=== PATIENT | female | born 1940 | race Caucasian/White ===

== ENCOUNTER 2019-11-16 08:28 | Outpatient (CLI) | payer MEDICARE, SELFPAY ==
[2019-11-16 08:54] LABS: Basophils % 0.8 %; Eosinophils # 0.2 10^3/uL (0.0-0.8); Eosinophils % 3.3 %; Hematocrit 33.7 % (37.0-47.0); Hemoglobin 10.8 g/dL (11.5-15.3); Lymphocytes # 1.1 10^3/uL (0.8-4.8); Lymphocytes % 21.9 %; Mean Corpuscular Hemoglobin 29.6 pg (28.0-34.0); Mean Corpuscular Volume 92.3 fL (81-99); Mean Platelet Volume 8.7 fL (7.4-10.4); Monocytes # 0.4 10^3/uL (0.2-0.9); Monocytes % 8.4 %; Neutrophils # 3.4 10^3/uL (1.8-7.7); Neutrophils % 65.4 %; Nucleated Red Blood Cells % 0 %; Platelet Count 306 10^3/cmm (130-400); Red Blood Count 3.65 10^6/uL (4.1-5.3); White Blood Count 5.1 10^3/uL (4.0-10.0)
[2019-11-16 09:04] LABS: Alanine Aminotransferase 12 U/L (0-33); Alkaline Phosphatase 131 IU/L (35-105); Anion Gap 16.4 (5-19); Aspartate Amino Transferase 23 U/L (0-32); Blood Urea Nitrogen 23 mg/dL (8-23); Calcium 10.1 mg/dL (8.5-10.5); Carbon Dioxide 26 mmol/L (22-29); Chloride 97 mmol/L (98-107); Globulin 3.6 g/dL (1.3-4.6); Glucose 116 mg/dL (65-115); Potassium 4.4 mmol/L (3.5-5.1); Sodium 135 mmol/L (136-145); Total Bilirubin 0.3 mg/dL (0.15-1.2); Total Protein 7.6 g/dL (6.6-8.7)
--- NOTE | 2019-11-16 15:17 | ONC FU_ITS ---
Dr. Rees follow up note Patient: Joy Patiño Unit #: [id number]: 1940 Dicatated By: Fabiano Rees M.D.Date of Visit:Nov 16, 2019 Onc Med Follow-up/Prog Note History of Present Illness: Mrs. Joy Patiño, is a 79-year-old female, who was diagnosed with left breast cancer in 1998, at that time she underwent left breast lumpectomy and she was given 3 courses of chemotherapy but could not tolerate the treatment and quit but did receive postlumpectomy radiation therapy. Did not take any other treatment until in 2005 when she developed local recurrence and underwent left mastectomy. As per record, she developed back pain and hip pain for which in October 2016 she was evaluated by orthopedics and MRI scan of lumbar spine was done on 2016 which shows extensive bone metastases with a large soft tissue mass anterior to L1-L2 measuring 5.3 cm in greatest dimension. And her CEA was 30.1. CT scan of abdomen was done on 12/14/2016 which confirmed presence of multiple bone metastases and a right retrocaval/paravertebral soft tissue mass. And also noted was mild thickening of sigmoid colon at that time patient refused further diagnostic efforts and requested only symptomatic care but agreed for CT-guided biopsy of retrocaval mass, which was done on 02/21/2017, the biopsy showed estrogen receptor positive malignant cells which were positive for LEESA-3, and negative for CK 7, CK 20, CD45, CD38, consistent with metastatic breast cancer. She began palliative hormone therapy with anastrozole on 03/13/2017, but she discontinued it because of related to anxiety/panic attacks. At that time she was referred to radiation oncology in [facility] and on 05/15/2017 she was evaluated by Dr. Reyes, and was given course of palliative radiation therapy to sites of painful bone metastases. Subsequently patient accepted treatment with Faslodex from May 2017 to March 2018 and had a good partial response to the treatment but then she discontinued treatment because of discomfort at the injection sites.And opted for observation alone without any treatment. She underwent follow-up CT PET scan on 11/05/2018 which reveals, as per record, no areas of malignant range uptake. HER-2/ale testing was not performed because of inadequate tissue obtained from retrocaval mass biopsy and her medical oncologist Dr. Nunez did not recommend rebiopsy for HER-2/ale status as patient prefer less aggressive therapy. 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 Complex bilateral renal lesions, indeterminate on noncontrast exam. Colonic diverticulosis without pericolonic inflammation. Patient denies any trauma to her lower back except as per patient she was working in the yard, that made her pain worse other than that she occasionally take narcotics, with good pain control but also with sedation, denies any lower extremity weakness or pain radiation to lower extremity, denies any urine or stool incontinence, denies any numbness in lower extremities. As per patient her pain is around 5-6 on a scale of 1-10,. CT PET scan done on 03/27/[address] PET scan from 11/05/2018 and 05/09/2018showed no change in the small retroperitoneal mass posterior to the inferior vena cava with borderline activity with maximum SUV of 2.5 status post mastectomy on the left No change in sclerotic densities in the bone suspicious for metastatic disease which did not show increase activity. Came for follow-up, denies any specific complaint except chronic lower back pain for which she take hydrocodone on as-needed basis. Other than that no other complaints except generalized weakness and fatigue and she is requesting a handicap sticker for parking. Denies any fever chills denies any nausea vomiting denies any headaches or blurred vision or double vision denies any new bony pains denies any jaundice. Follow-up CT PET scan done on 11/03/2019 showed, interval development of 2.9 cm, left supraclavicular lymph node with abnormal metabolic activity, SUV 8.9. There are numerous sclerotic foci within the bones with abnormal metabolic activity including left iliac bone sclerotic lesion with a maximal SUV 4.9. There or metabolically active lesions within the axilla and proximal appendicular skeleton which have worsened in the interval. Small retrocaval lymph node has SUV of 2.8 As a new left internal mammary lymph node with increase in metabolic activity. Came for follow-up, denies any specific complaints except chronic muscular skeleton discomfort/pain but no fever or chills no nausea or vomiting no diarrhea constipation no headaches or blurred vision double vision. Wants to discuss her CT PET scan findings. Medications: AmLODIPine Besylate 1 Tablet (of 5 mg) Oral daily, Aricept 1 Tablet (of 5 mg) Oral daily, Aspirin Low Dose 1 Tablet (of 81 mg) Oral daily, Coumadin 1 Tablet (of 1 mg) Oral daily, Docusate Calcium 1 Capsule (of 240 mg) Oral daily, Lexapro 1 Tablet (of 20 mg) Oral daily, Lisinopril-Hydrochlorothiazide 1 Tablet (of 20-12.5 mg) Oral daily, LORazepam 1 Tablet (of 0.5 mg) Tablet Oral q 4 hours PRN, Mobic 1 Tablet (of 15 mg) Oral daily, Multiple Vitamins-Minerals 1 Tablet Oral daily, PriLOSEC 1 Capsule (of 20 mg) Capsule Delayed Release Oral daily Allergies: No Known Allergies. Review of Systems: Constitutional - Appetite is good and weight is stable. No fever, chills, hot flashes, or night sweats. Energy level is poor, ENMT - Positive for sinus congestion/drainage. No mouth sores. No sore throat or difficulty swallowing, Hematologic/Lymphatic - [employer] bruising and bleeding, Respiratory - Positive for shortness of breath. Positive for cough. No pleuritic pain or hemoptysis, Cardiovascular - No angina pain. No palpitations, Gastrointestinal - No nausea or vomiting. Positive for heartburn, no acid reflux. Occasional diarrhea. Positive for constipation. No blood in the stool or black stools, Genitourinary (F) - Positive for incontinence and urinary frequency, Musculoskeletal - Positive for joint and back pain, Neurologic - No headache, occasional dizziness. Tingling in hands and feet, Psychiatric - Positive for anxiety/depression/insomnia/suicidal thoughts. Pt denies active plan. Vital Signs: Performed on Nov 16, 2019 10:20 Height - 64.00 in Weight - 160.0 lbs (LOW) BSA - 1.78 sq.m BMI - 27.46 Temperature - 98.1 F (LOW) Pulse - 89 /min Respiration - 17 /min BP - 145/66 mm(hg) (HIGH) O2 Sat - 95 % (LOW) Pain - 0 Performance Status: 0 - Fully active, able to carry on all predisease activities without restrictions. (ECOG) Physical Examination: Respiratory - Lungs are clear to auscultation without rhonchi or wheezing, Cardiovascular - Regular rate and rhythm of heart, Chest - Chest is symmetric without chest wall deformities, fullness and left supraclavicular area, Extremities - no edema. Lab/Imaging: Test performed on Jun 25, 2019 12:25 Sodium 135 mmol/L Potassium 4.1 mmol/L Chloride 97 mmol/L CO2 24 mmol/L Anion Gap 18.1 BUN 21 mg/dL Creatinine 1.2 mg/dL Cr Clearance (Est) 44.5500 mL/min Glucose 146 mg/dl Calcium 9.6 mg/dL Protein, Total 7.6 g/dL Albumin 4.2 g/dL Globulin 3.4 gm/dL Bilirubin, Total 0.3 mg/dL ALT (SGPT) 25 U/L AST (SGOT) 26 U/L Alkaline Phosphatase 86 U/L WBC 4.6 /cmm RBC 3.98 10 6/cmm HGB 12.4 g/dl HCT 35.8 % MCV 89.9 /cmm MCH 31.2 pg MCHC 34.6 g/dl RDW 13.8 % Platelet Count 254 10 3/cmm MPV 7.3 fl Neutrophils 2.6 10 3/cmm Lymphocytes 1.4 10 3/cmm Monocytes 0.4 10 3/cmm Eosinophils 0.2 10 3/cmm Basophils 0.0 10 3/cmm Neutrophil % 56.5 % Lymphocyte % 29.3 % Monocyte % 9.7 % Eosinophil % 4.0 % Basophils % 0.5 % Impression: Progressive metastatic breast cancer while being observed at patient request confirmed with CT PET scan done on 11/03/2019, started on Arimidex 1 mg by mouth daily along with vitamin D and calcium supplement and monthly Xgeva on 11/16/2019 History of left breast cancer status post lumpectomy in 1998 followed by adjuvant chemotherapy patient took 3/4 recommended courses and quit AGAINST MEDICAL ADVICE because of intolerance. Followed by postlumpectomy radiation therapy and no further treatment Local recurrence in left breast for which she underwent left mastectomy in 2005 Did well until October 2016, when she developed back pain/hip pain at that time she underwent MRI scan of lumbar spine on 11/16/2016 which showed extensive bone metastases with a large soft tissue mass anterior to L1-L2 measuring 5.[address] scan of abdomen pelvis on 12/14/2016 which confirmed presence of multiple bone metastases and a right retrocaval/paravertebral soft tissue mass and also with the mild thickening of sigmoid colon. Patient refused further workup but finally agreed for CT-guided biopsy of retrocaval mass, which was done on 02/21/2017, which showed estrogen receptor positive malignant cell which were also positive for GATA3 and negative for CK 7, CD20, CD45, CD38. Consistent with metastatic breast cancer. She was started on palliative hormone therapy with anastrozole on 03/13/2017 but she discontinued because of related anxiety and panic attacks. At that time she was referred to radiation oncology in [place], she saw Dr. Reyes on 05/15/2017, at that time she received palliative radiation therapy to site of painful bone metastases with good response and subsequently she was started on Faslodex from May 2017 through March 2018, had a good partial response to the treatment but then she discontinued treatment because of discomfort at the injection sites and opted for observation Underwent follow-up CT PET scan on 11/05/2018 which showed as per record, no areas of malignant range uptake. 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 CT PET scan done on 03/27/2019, when compared with CT PET scan from 11/05/2018 and 05/09/2018 showed no change in small retroperitoneal mass just posterior to the inferior vena cava that measures about 8 x 11 mm and there is a minimum activity in this area with maximum SUV of 2.5 which is not significant change. No other areas of abnormal activity or mass seen. Normal activity is seen in the solid organs. Next Sclerotic densities in the bone suspicion metastatic disease are unchanged. No increased activity is seen in the bones. cyst of posterior right kidney that measured 2.8 cm Status post left mastectomy. Plan: Discussed with patient regarding her labs white blood count 5.1 hemoglobin 10.68 crit 33.7 platelets 306,000 CMP within normal limit except creatinine 1.5 and alkaline phosphatase 131 [place] [address] PET scan findings which shows evidence of disease progression Clinically, patient is doing well with no new signs symptoms but her follow-up CT PET scan shows evidence of disease progression, now with progressive skeleton metastases and new left supraclavicular lymph node and internal mammary lymph node. At this point we will consider starting on Arimidex 1 mg by mouth daily, as per patient in the past, she tolerated Arimidex well until nurse gave her another pill and Arimidex together, which caused symptoms side effects. Now agreed to try, we will monitor her closely for any side effects other than usual e.g. hot flashes, generalized weakness fatigue or muscle skeleton discomfort. Patient return to clinic in one month with CBC CMP and also consider Xgeva on monthly basis to prevent skeletal related complications. Signed By: Fabiano Rees M.D. <<Signature on File>>
== END 2019-11-16 08:29 | disposition home or self-care (01) ==
LOC: ONCMED 08:29
PROVIDERS: Family Provider Nurse Practitioner Family; PCP Family Medicine; Visit Provider Internal Medicine Hematology & Oncology
DX: C79.51 Secondary malignant neoplasm of bone (principal); C78.6 Secondary malignant neoplasm of retroperitoneum and peritoneum; C77.8 Secondary and unspecified malignant neoplasm of lymph nodes of multiple regions; Z85.3 Personal history of malignant neoplasm of breast; G89.29 Other chronic pain; M54.5 Low back pain; Z17.0 Estrogen receptor positive status [ER+]; Z79.891 Long term (current) use of opiate analgesic; Z79.899 Other long term (current) drug therapy; Z79.82 Long term (current) use of aspirin; Z79.811 Long term (current) use of aromatase inhibitors; Z92.21 Personal history of antineoplastic chemotherapy; Z92.3 Personal history of irradiation; Z90.12 Acquired absence of left breast and nipple
CPT/HCPCS: 80053; 85025; 86300; 99214

== ENCOUNTER 2019-11-19 09:19 | Outpatient (CLI) | payer MEDICARE, SELFPAY ==
[2019-11-19] MEDS: denosumab 120 mg SDV SUBCUT (09:45)
== END 2019-11-19 09:20 | disposition home or self-care (01) ==
LOC: ONCMED 09:19
PROVIDERS: Family Provider Nurse Practitioner Family; PCP Family Medicine; Visit Provider Internal Medicine Medical Oncology
DX: C79.51 Secondary malignant neoplasm of bone (principal)
CPT/HCPCS: 96372; J0897

== ENCOUNTER 2019-12-23 14:05 | Outpatient (CLI) | payer MEDICARE, SELFPAY ==
[2019-12-23 16:53] LABS: Basophils % 0.7 %; Eosinophils # 0.2 10^3/uL (0.0-0.8); Eosinophils % 3.5 %; Hematocrit 36.8 % (37.0-47.0); Hemoglobin 11.6 g/dL (11.5-15.3); Lymphocytes # 1.7 10^3/uL (0.8-4.8); Lymphocytes % 31.7 %; Mean Corpuscular HGB Conc 31.5 g/dL (30.0-36.0); Mean Corpuscular Hemoglobin 29.3 pg (28.0-34.0); Mean Corpuscular Volume 92.9 fL (81-99); Mean Platelet Volume 9.2 fL (7.4-10.4); Monocytes # 0.5 10^3/uL (0.2-0.9); Monocytes % 9.2 %; Neutrophils % 54.5 %; Nucleated Red Blood Cells % 0 %; Platelet Count 314 10^3/cmm (130-400); Red Blood Count 3.96 10^6/uL (4.1-5.3); Red Cell Distribution Width 13.7 % (12.1-15.1); White Blood Count 5.5 10^3/uL (4.0-10.0)
[2019-12-23 16:55] LABS: Alanine Aminotransferase 18 U/L (0-33); Albumin Level 4.4 g/dL (3.5-5.2); Alkaline Phosphatase 111 IU/L (35-105); Anion Gap 16.3 (5-19); Aspartate Amino Transferase 26 U/L (0-32); Blood Urea Nitrogen 27 mg/dL (8-23); Calcium 9.4 mg/dL (8.5-10.5); Carbon Dioxide 26 mmol/L (22-29); Chloride 93 mmol/L (98-107); Globulin 2.8 g/dL (1.3-4.6); Glucose 121 mg/dL (65-115); Osmolality Calculated 270 mOsm/kg (285-295); Potassium 4.3 mmol/L (3.5-5.1); Sodium 131 mmol/L (136-145); Total Bilirubin 0.3 mg/dL (0.15-1.2); Total Protein 7.2 g/dL (6.6-8.7)
== END 2019-12-23 14:06 | disposition home or self-care (01) ==
LOC: ONCMED 17:04
PROVIDERS: PCP Family Medicine; Visit Provider Internal Medicine Hematology & Oncology
DX: C50.912 Malignant neoplasm of unspecified site of left female breast (principal); C79.51 Secondary malignant neoplasm of bone; C78.6 Secondary malignant neoplasm of retroperitoneum and peritoneum
CPT/HCPCS: 80053; 85025

== ENCOUNTER 2019-12-24 12:17 | Outpatient (CLI) | payer MEDICARE, SELFPAY ==
[2019-12-24] MEDS: denosumab 120 mg SDV SUBCUT (13:21)
--- NOTE | 2019-12-24 16:21 | ONC FU_ITS ---
Dr. Rees follow up note Patient: Joy Patiño Unit #: [id number]: 1940 Dicatated By: Fabiano Rees M.D.Date of Visit:Dec 24, 2019 Onc Med Follow-up/Prog Note History of Present Illness: Mrs. Joy Patiño, is a 79-year-old female, who was diagnosed with left breast cancer in 1998, at that time she underwent left breast lumpectomy and she was given 3 courses of chemotherapy but could not tolerate the treatment and quit but did receive postlumpectomy radiation therapy. Did not take any other treatment until in 2005 when she developed local recurrence and underwent left mastectomy. As per record, she developed back pain and hip pain for which in October 2016 she was evaluated by orthopedics and MRI scan of lumbar spine was done on 2016 which shows extensive bone metastases with a large soft tissue mass anterior to L1-L2 measuring 5.3 cm in greatest dimension. And her CEA was 30.1. CT scan of abdomen was done on 12/14/2016 which confirmed presence of multiple bone metastases and a right retrocaval/paravertebral soft tissue mass. And also noted was mild thickening of sigmoid colon at that time patient refused further diagnostic efforts and requested only symptomatic care but agreed for CT-guided biopsy of retrocaval mass, which was done on 02/21/2017, the biopsy showed estrogen receptor positive malignant cells which were positive for LEESA-3, and negative for CK 7, CK 20, CD45, CD38, consistent with metastatic breast cancer. She began palliative hormone therapy with anastrozole on 03/13/2017, but she discontinued it because of related to anxiety/panic attacks. At that time she was referred to radiation oncology in [facility] and on 05/15/2017 she was evaluated by Dr. Reyes, and was given course of palliative radiation therapy to sites of painful bone metastases. Subsequently patient accepted treatment with Faslodex from May 2017 to March 2018 and had a good partial response to the treatment but then she discontinued treatment because of discomfort at the injection sites.And opted for observation alone without any treatment. She underwent follow-up CT PET scan on 11/05/2018 which reveals, as per record, no areas of malignant range uptake. HER-2/ale testing was not performed because of inadequate tissue obtained from retrocaval mass biopsy and her medical oncologist Dr. Nunez did not recommend rebiopsy for HER-2/ale status as patient prefer less aggressive therapy. 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 Complex bilateral renal lesions, indeterminate on noncontrast exam. Colonic diverticulosis without pericolonic inflammation. Patient denies any trauma to her lower back except as per patient she was working in the yard, that made her pain worse other than that she occasionally take narcotics, with good pain control but also with sedation, denies any lower extremity weakness or pain radiation to lower extremity, denies any urine or stool incontinence, denies any numbness in lower extremities. As per patient her pain is around 5-6 on a scale of 1-10,. CT PET scan done on 03/27/[address] PET scan from 11/05/2018 and 05/09/2018showed no change in the small retroperitoneal mass posterior to the inferior vena cava with borderline activity with maximum SUV of 2.5 status post mastectomy on the left No change in sclerotic densities in the bone suspicious for metastatic disease which did not show increase activity. , denies any specific complaint except chronic lower back pain for which she take hydrocodone on as-needed basis. Follow-up CT PET scan done on 11/03/2019 showed, interval development of 2.9 cm, left supraclavicular lymph node with abnormal metabolic activity, SUV 8.9. There are numerous sclerotic foci within the bones with abnormal metabolic activity including left iliac bone sclerotic lesion with a maximal SUV 4.9. There or metabolically active lesions within the axilla and proximal appendicular skeleton which have worsened in the interval. Small retrocaval lymph node has SUV of 2.8 As a new left internal mammary lymph node with increase in metabolic activity. Started on Arimidex 1 mg by mouth daily along with vitamin D/calcium on 11/16/2019 along with monthly Xgeva Came for follow-up, denies any specific complaints, no nausea or vomiting, no fever or chills, no skin rash or diarrhea constipation, no night sweats, no hot flashes. Tolerating Arimidex and vitamin D/calcium and monthly Xgeva well Medications: Aspirin Low Dose 1 Tablet (of 81 mg) Oral daily, Calcium Citrate 1 Capsule Oral daily, Coumadin 1 Tablet (of 1 mg) Oral daily, Docusate Calcium 1 Capsule (of 240 mg) Oral daily, Famotidine 1 Tablet (of 40 mg) Oral daily, Fish Oil 1 Capsule Oral daily, Lexapro 1 Tablet (of 20 mg) Oral daily, Lisinopril-Hydrochlorothiazide 1 Tablet (of 20-25 mg) Oral daily, LORazepam 1 Tablet (of 0.5 mg) Tablet Oral q 4 hours PRN, Mobic 1 Tablet (of 15 mg) Oral daily, Multiple Vitamins-Minerals 1 Tablet Oral daily, PriLOSEC 1 Capsule (of 20 mg) Capsule Delayed Release Oral daily Allergies: No Known Allergies. Review of Systems: Constitutional - Appetite is good and weight is stable. No fever, chills, hot flashes, or night sweats. Energy level is fair today, ENMT - Positive for sinus congestion/drainage. No mouth sores. No sore throat or difficulty swallowing, Hematologic/Lymphatic - [employer] bruising and bleeding, Respiratory - Negative for shortness of breath. Positive for cough. No pleuritic pain or hemoptysis, Cardiovascular - No angina pain. No palpitations, Gastrointestinal - No nausea or vomiting. Positive for heartburn, no acid reflux. Occasional diarrhea. Positive for constipation. No blood in the stool or black stools, Genitourinary (F) - Positive for incontinence and urinary frequency, Musculoskeletal - Positive for joint and back pain, Neurologic - No headache, occasional dizziness. Tingling in hands and feet, Psychiatric - Positive for anxiety/depression/insomnia/suicidal thoughts. Pt denies active plan. Vital Signs: Performed on Dec 24, 2019 12:38 Height - 64.00 in Weight - 162.2 lbs (HIGH) BSA - 1.79 sq.m BMI - 27.84 Temperature - 98.1 F (LOW) Pulse - 79 /min Respiration - 18 /min BP - 145/69 mm(hg) (HIGH) O2 Sat - 99 % Pain - 0 Performance Status: 0 - Fully active, able to carry on all predisease activities without restrictions. (ECOG) Physical Examination: Respiratory - Lungs are clear to auscultation without rhonchi or wheezing, Cardiovascular - Regular rate and rhythm of heart without murmurs, gallops or rubs, Extremities - No visible deformities, no cyanosis, clubbing or edema. Pulses 4+ and equal bilaterally. Lab/Imaging: Test performed on Dec 23, 2019 14:05 Sodium 131 mmol/L Potassium 4.3 mmol/L Chloride 93 mmol/L CO2 26 mmol/L Anion Gap 16.3 BUN 27 mg/dL Creatinine 1.8 mg/dL Cr Clearance (Est) 28.47 mL/min Glucose 121 mg/dL Calcium 9.4 mg/dL Protein, Total 7.2 g/dL Albumin 4.4 g/dL Globulin 2.8 g/dL Bilirubin, Total 0.3 mg/dL ALT (SGPT) 18 U/L AST (SGOT) 26 U/L Alkaline Phosphatase 111 IU/L WBC 5.5 10 3/uL RBC 3.96 10 6/uL HGB 11.6 g/dL HCT 36.8 % MCV 92.9 fL MCH 29.3 pg MCHC 31.5 g/dL RDW 13.7 % Platelet Count 314 10 3/cmm MPV 9.2 fL Neutrophils 3.0 10 3/uL Lymphocytes 1.7 10 3/uL Monocytes 0.5 10 3/uL Eosinophils 0.2 10 3/uL Basophils 0.0 10 3/uL Neutrophil % 54.5 % Lymphocyte % 31.7 % Monocyte % 9.2 % Eosinophil % 3.5 % Basophils % 0.7 % Impression: Progressive metastatic breast cancer while being observed at patient request , now confirmed with f/u CT PET scan done on 11/03/2019, started on Arimidex 1 mg by mouth daily along with vitamin D and calcium supplement and monthly Xgeva on 11/16/2019 History of left breast cancer status post lumpectomy in 1998 followed by adjuvant chemotherapy patient took 3/4 recommended courses and quit AGAINST MEDICAL ADVICE because of intolerance. Followed by postlumpectomy radiation therapy and no further treatment Local recurrence in left breast for which she underwent left mastectomy in 2005 Did well until October 2016, when she developed back pain/hip pain at that time she underwent MRI scan of lumbar spine on 11/16/2016 which showed extensive bone metastases with a large soft tissue mass anterior to L1-L2 measuring 5.[address] scan of abdomen pelvis on 12/14/2016 which confirmed presence of multiple bone metastases and a right retrocaval/paravertebral soft tissue mass and also with the mild thickening of sigmoid colon. Patient refused further workup but finally agreed for CT-guided biopsy of retrocaval mass, which was done on 02/21/2017, which showed estrogen receptor positive malignant cell which were also positive for GATA3 and negative for CK 7, CD20, CD45, CD38. Consistent with metastatic breast cancer. She was started on palliative hormone therapy with anastrozole on 03/13/2017 but she discontinued because of related anxiety and panic attacks. At that time she was referred to radiation oncology in [place], she saw Dr. Reyes on 05/15/2017, at that time she received palliative radiation therapy to site of painful bone metastases with good response and subsequently she was started on Faslodex from May 2017 through March 2018, had a good partial response to the treatment but then she discontinued treatment because of discomfort at the injection sites and opted for observation Underwent follow-up CT PET scan on 11/05/2018 which showed as per record, no areas of malignant range uptake. 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 CT PET scan done on 03/27/2019, when compared with CT PET scan from 11/05/2018 and 05/09/2018 showed no change in small retroperitoneal mass just posterior to the inferior vena cava that measures about 8 x 11 mm and there is a minimum activity in this area with maximum SUV of 2.5 which is not significant change. No other areas of abnormal activity or mass seen. Normal activity is seen in the solid organs. Next Sclerotic densities in the bone suspicion metastatic disease are unchanged. No increased activity is seen in the bones. cyst of posterior right kidney that measured 2.8 cm Status post left mastectomy. Plan: Discussed with patient regarding her labs white blood count 5.5 hemoglobin 11.6 crit 36.8 platelets 314,000 CMP within normal limit except sodium 131 and creatinine 1.8 Clinically, patient is doing reasonably well, tolerating Arimidex/vitamin D/calcium and monthly Xgeva well. We'll proceed with next monthly dose of Xgeva today and then she will continue with Arimidex 1 mg by mouth daily. Patient had no issues with Arimidex this time like what happened when she took it first-time in 2017, as per patient that time she took another pill along with this, and was not sure whether it was Arimidex. So this time we will rechallenge, she had no issues and tolerating well. So we'll continue with same and she will return to clinic in 3 months with CBC CMP but continue with monthly Xgeva. Mild anemia, hemoglobin is improving we'll continue to monitor Mild renal insufficiency, we'll suggest PMD consult nephrology. Signed By: Fabiano Rees M.D. <<Signature on File>>
== END 2019-12-24 12:18 | disposition home or self-care (01) ==
LOC: ONCMED 12:19
PROVIDERS: PCP Family Medicine; Visit Provider Internal Medicine Hematology & Oncology
DX: C79.51 Secondary malignant neoplasm of bone (principal); C50.912 Malignant neoplasm of unspecified site of left female breast; C78.6 Secondary malignant neoplasm of retroperitoneum and peritoneum; C77.0 Secondary and unspecified malignant neoplasm of lymph nodes of head, face and neck; Z85.3 Personal history of malignant neoplasm of breast; Z17.0 Estrogen receptor positive status [ER+]; K57.90 Diverticulosis of intestine, part unspecified, without perforation or abscess without bleeding; G89.29 Other chronic pain; M54.5 Low back pain; D64.9 Anemia, unspecified; N18.2 Chronic kidney disease, stage 2 (mild); F41.8 Other specified anxiety disorders; Z79.811 Long term (current) use of aromatase inhibitors; Z79.82 Long term (current) use of aspirin; Z79.01 Long term (current) use of anticoagulants; Z79.899 Other long term (current) drug therapy; Z92.3 Personal history of irradiation; Z90.12 Acquired absence of left breast and nipple; Z92.21 Personal history of antineoplastic chemotherapy
CPT/HCPCS: 96372; 99214; J0897

== ENCOUNTER 2020-01-25 13:19 | Outpatient (CLI) | payer MEDICARE, SELFPAY ==
[2020-01-25] MEDS: denosumab 120 mg SDV SUBCUT (13:30)
== END 2020-01-25 13:20 | disposition home or self-care (01) ==
LOC: ONCMED 13:27
PROVIDERS: PCP Family Medicine; Visit Provider Internal Medicine Hematology & Oncology
DX: Z51.11 Encounter for antineoplastic chemotherapy (principal); C78.6 Secondary malignant neoplasm of retroperitoneum and peritoneum; C79.51 Secondary malignant neoplasm of bone; C50.912 Malignant neoplasm of unspecified site of left female breast
CPT/HCPCS: 96372; J0897

== ENCOUNTER 2020-02-24 12:37 | Outpatient (CLI) | payer MEDICARE, SELFPAY ==
[2020-02-24] MEDS: denosumab 120 mg SDV SUBCUT (12:55)
== END 2020-02-24 12:38 | disposition home or self-care (01) ==
LOC: ONCMED 12:41
PROVIDERS: PCP Family Medicine; Visit Provider Internal Medicine Hematology & Oncology
DX: C79.51 Secondary malignant neoplasm of bone (principal); C78.6 Secondary malignant neoplasm of retroperitoneum and peritoneum; C50.912 Malignant neoplasm of unspecified site of left female breast
CPT/HCPCS: 96372; J0897

== ENCOUNTER 2020-03-28 13:08 | Outpatient (CLI) | payer MEDICARE, SELFPAY ==
[2020-03-28 13:47] LABS: Basophils % 0.9 %; Eosinophils # 0.2 10^3/uL (0.0-0.8); Eosinophils % 4.3 %; Hematocrit 32.3 % (37.0-47.0); Hemoglobin 10.6 g/dL (11.5-15.3); Lymphocytes # 1.3 10^3/uL (0.8-4.8); Lymphocytes % 26.9 %; Mean Corpuscular HGB Conc 32.8 g/dL (30.0-36.0); Mean Corpuscular Hemoglobin 29.4 pg (28.0-34.0); Mean Corpuscular Volume 89.7 fL (81-99); Mean Platelet Volume 8.5 fL (7.4-10.4); Monocytes # 0.4 10^3/uL (0.2-0.9); Monocytes % 9.5 %; Neutrophils # 2.7 10^3/uL (1.8-7.7); Neutrophils % 58.2 %; Nucleated Red Blood Cells % 0 %; Platelet Count 297 10^3/cmm (130-400); Red Cell Distribution Width 12.9 % (12.1-15.1); White Blood Count 4.6 10^3/uL (4.0-10.0)
[2020-03-28 14:09] LABS: Alanine Aminotransferase 16 U/L (0-33); Albumin Level 4.3 g/dL (3.5-5.2); Alkaline Phosphatase 107 IU/L (35-105); Aspartate Amino Transferase 26 U/L (0-32); Blood Urea Nitrogen 22 mg/dL (8-23); Calcium 9.4 mg/dL (8.5-10.5); Carbon Dioxide 25 mmol/L (22-29); Chloride 93 mmol/L (98-107); Globulin 3.1 g/dL (1.3-4.6); Glucose 133 mg/dL (65-115); Osmolality Calculated 267 mOsm/kg (285-295); Sodium 129 mmol/L (136-145); Total Bilirubin 0.3 mg/dL (0.15-1.2); Total Protein 7.4 g/dL (6.6-8.7)
[2020-03-28] MEDS: denosumab 120 mg SDV SUBCUT (15:10)
--- NOTE | 2020-03-31 10:21 | ONC FU_ITS ---
Sandra Justin Patient Note Patient: Joy Patiño Unit #: [id number]: 1940 Dictated By: Barbra NathanDate of Visit: Mar 28, 2020 Onc MED Follow-Up/Prog Note Chief Complaint: Metastatic breast cancer History of Present Illness: Mrs. Patiño is an 80-year-old female, who was diagnosed with left breast cancer in 1998. She underwent left breast lumpectomy and she was given 3 courses of chemotherapy but could not tolerate the treatment. She did receive postlumpectomy radiation therapy. Mrs Patiño did not take any other treatment until in 2005 when she developed local recurrence and underwent left mastectomy. As per records, she developed back pain and hip pain in October 2016. She was evaluated by orthopedics and MRI scan of lumbar spine was done on 2016 which reported extensive bone metastases with a large soft tissue mass anterior to L1-L2 measuring 5.3 cm in greatest dimension. Her CEA was 30.1. CT scan of abdomen was done on 12/14/2016 which confirmed presence of multiple bone metastases and a right retrocaval/paravertebral soft tissue mass. And also noted was mild thickening of sigmoid colon, At that time patient refused further diagnostic efforts and requested only symptomatic care. She did agree for CT-guided biopsy of retrocaval mass, which was done on 02/21/2017. The pathology reported estrogen receptor positive malignant cells which were positive for LEESA-3, and negative for CK 7, CK 20, CD45, CD38. These findings were consistent with metastatic breast cancer. She began palliative hormone therapy with anastrozole on 03/13/2017, but she discontinued it because of related to anxiety/panic attacks. At that time she was referred to radiation oncology [facility] and on 05/15/2017 she was evaluated by Dr. Reyes, and was given course of palliative radiation therapy to sites of painful bone metastases. Subsequently patient accepted treatment with Faslodex from May 2017 to March 2018 and had a good partial response to the treatment but then she discontinued treatment because of discomfort at the injection sites. She then opted for observation alone without any treatment. She underwent follow-up CT PET scan on 11/05/2018 which revealed no areas of malignant range uptake. HER-2/ale testing was not performed because of inadequate tissue obtained from retrocaval mass biopsy and her medical oncologist Dr. Nunez did not recommend rebiopsy for HER-2/ale status as patient prefer less aggressive therapy. 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 Complex bilateral renal lesions, indeterminate on noncontrast exam. Colonic diverticulosis without pericolonic inflammation. Patient denied any trauma to her lower back except as per patient she was working in the yard, that made her pain worse other than that she occasionally take narcotics, with good pain control but also with sedation, denies any lower extremity weakness or pain radiation to lower extremity, denies any urine or stool incontinence, denies any numbness in lower extremities. As per patient her pain was around 5-6 on a scale of 1-10. CT PET scan done on 03/27/[address] PET scan from 11/05/2018 and 05/09/2018showed no change in the small retroperitoneal mass posterior to the inferior vena cava with borderline activity with maximum SUV of 2.5 status post mastectomy on the left No change in sclerotic densities in the bone suspicious for metastatic disease which did not show increase activity. Follow-up CT PET scan done on 11/03/2019 showed, interval development of 2.9 cm, left supraclavicular lymph node with abnormal metabolic activity, SUV 8.9. There are numerous sclerotic foci within the bones with abnormal metabolic activity including left iliac bone sclerotic lesion with a maximal SUV 4.9. There or metabolically active lesions within the axilla and proximal appendicular skeleton which have worsened in the interval. Small retrocaval lymph node has SUV of 2.8 As a new left internal mammary lymph node with increase in metabolic activity. Mrs Patiño was started on Arimidex 1 mg by mouth daily along with vitamin D/calcium on 11/16/2019. She also began monthly Xgeva at that time. She has been tolerating Arimidex and vitamin D/calcium and monthly Xgeva well. Ms. Patiño is here today for follow-up. She is due for monthly Xgeva. She continues to tolerate it well. She denies any new pain. She states she did have an episode of right-sided pain around T7-T8 during that time when she was constipated. She states once the constipation was relieved she is the back pain is gone as well. She denies any further heartburn. She states the Pepcid is taking care of that. She states she has good days and bad days but the good days outweigh the bad days. She states her bad days consist of worsening fatigue but she recovers well with rest. She has no new complaints. She denies any new pain. She states her pain is still well controlled with her current pain regimen. She denies any fever or chills. She denies mouth sores, sore throat or difficulty swallowing. She is had no problems with hot flashes. She denies any shortness of breath orthopnea. She denies any chest pain or palpitations. Her ECOG is 1. Past Medical History: Anxiety Depression Hyperlipidemia Hypertension Past Surgical History: Hysterectomy Tubal ligation Mastectomy in 2005 - Left Lumpectomy in 1998 Allergies: No Known Allergies. Medications: Aspirin Low Dose 1 Tablet (of 81 mg) Oral daily Calcium Citrate 1 Capsule Oral daily Coumadin 1 Tablet (of 1 mg) Oral daily Docusate Calcium 1 Capsule (of 240 mg) Oral daily Famotidine 1 Tablet (of 40 mg) Oral daily Fish Oil 1 Capsule Oral daily Lexapro 0.5 Tablet (of 20 mg) Oral daily Lisinopril-Hydrochlorothiazide 1 Tablet (of 20-25 mg) Oral daily LORazepam 1 Tablet (of 0.5 mg) Tablet Oral q 4 hours PRN Mobic 1 Tablet (of 15 mg) Oral daily Multiple Vitamins-Minerals 1 Tablet Oral daily PriLOSEC 1 Capsule (of 20 mg) Capsule Delayed Release Oral daily Family History: Ms. Patiño's mother at age 97: Skin Cancer, and old age . Ms. Patiño's father at age 93: old age . Ms. Patiño has 2 maternal uncles: 1 alive, 1 . Ms. Patiño's first maternal uncle's skin cancer. Another maternal uncle's breast cancer. She has 1 son who is : throat cancer, and from complication from an accident. Social History: Ms. Patiño is and she is retired. Ms. Patiño has never smoked. She is a former drinker. Review Of Symptoms: Constitutional Denies fevers, chills, night sweats, excessive fatigue or weight loss. She states she has fatigue but can still do her ADLs without assistance. Allergic/Immunologic No reactions. Eyes Denies significant visual changes. No diplopia. No amaurosis. ENMT Denies changes in hearing, sore throat, mouth sores, difficulty or changes in swallowing ability, and/or sinus drainage. Endocrine No diabetes, thyroid disease or hormone replacement. Denies hot flashes or night sweats. Hematologic/Lymphatic Denies easy bruising or bleeding. The patient denies any tender or palpable lymph nodes. Respiratory Denies dyspnea on exertion, chest pain, cough or hemoptysis. Denies orthopnea. Cardiovascular Denies anginal chest pain, palpitations or orthopnea. Gastrointestinal Denies nausea, vomiting, diarrhea, GI bleeding, or constipation. Denies change in bowel habits and/or stool color, no heartburn or early satiety. Genitourinary (F) No hematuria, hesitancy, incontinence, vaginal bleeding, discharge or other problems with urination. Musculoskeletal Denies joint pain, swelling or redness. No decreased range of motion. Integumentary Denies chronic rashes, inflammation, ulcerations or skin changes. Neurologic Denies headache, blurred vision, and no areas of focal weakness or numbness. Normal gait. No sensory problems. Psychiatric Denies insomnia, depression, briseida or mood swings. Vital Signs: Performed on Mar 28, 2020 14:23 Height - 64.00 in Weight - 162.2 lbs BSA - 1.79 sq.m BMI - 27.84 Temperature - 97.9 F (LOW) Pulse - 78 /min Respiration - 19 /min BP - 120/58 mm(hg) O2 Sat - 99 % Pain - 0,1 - No physically strenuous activity, but ambulatory and able to carry out light or sedentary work (e.g. office work, light house work). (ECOG) Physical Examination: Constitutional Alert, oriented, no acute distress. Skin pink, warm and dry. Head Normocephalic; atraumatic. Eyes Conjunctivae and sclerae are clear and without icterus. Pupils are reactive and equal. Neck Supple without masses or thyromegaly. No jugular venous distension. Hematologic/Lymphatic No petechiae or purpura. No tender or palpable lymph nodes in the cervical or supraclavicular areas. Respiratory Lungs are clear to auscultation without rhonchi or wheezing. Cardiovascular Regular rate and rhythm of heart without murmurs,clicks, gallops or rubs. Abdomen Non-tender, non-distended, no masses or ascites. Good bowel sounds noted in all quads. No guarding or rebound tenderness. No pulsatile masses. Back/Spine Non-tender to palpation. Extremities No visible deformities, no cyanosis, clubbing or edema. Musculoskeletal No tenderness or swelling, normal range of motion without obvious weakness. Integumentary No rashes or lesions. Neurologic No sensory or motor deficits, normal cerebellar function, normal gait. Psychiatric Alert and oriented times three. Coherent speech. Verbalizes understanding of our discussions today. Laboratory:Test performed on Mar 28, 2020 13:21 Sodium 129 mmol/L Potassium 5.0 mmol/L Chloride 93 mmol/L CO2 25 mmol/L Anion Gap 16.0 BUN 22 mg/dL Creatinine 1.6 mg/dL Cr Clearance (Est) 31.4900 mL/min Glucose 133 mg/dL Calcium 9.4 mg/dL Protein, Total 7.4 g/dL Albumin 4.3 g/dL Globulin 3.1 g/dL Bilirubin, Total 0.3 mg/dL ALT (SGPT) 16 U/L AST (SGOT) 26 U/L Alkaline Phosphatase 107 IU/L WBC 4.6 10 3/uL RBC 3.60 10 6/uL HGB 10.6 g/dL HCT 32.3 % MCV 89.7 fL MCH 29.4 pg MCHC 32.8 g/dL RDW 12.9 % Platelet Count 297 10 3/cmm MPV 8.5 fL Neutrophils 2.7 10 3/uL Lymphocytes 1.3 10 3/uL Monocytes 0.4 10 3/uL Eosinophils 0.2 10 3/uL Basophils 0.0 10 3/uL Neutrophil % 58.2 % Lymphocyte % 26.9 % Monocyte % 9.5 % Eosinophil % 4.3 % Basophils % 0.9 % NRBC % 0 % Impression: Progressive metastatic breast cancer while being observed at patient request , now confirmed with f/u CT PET scan done on 11/03/2019, started on Arimidex 1 mg by mouth daily along with vitamin D and calcium supplement and monthly Xgeva on 11/16/2019 History of left breast cancer status post lumpectomy in 1998 followed by adjuvant chemotherapy patient took 3/4 recommended courses and quit AGAINST MEDICAL ADVICE because of intolerance. Followed by postlumpectomy radiation therapy and no further treatment Local recurrence in left breast for which she underwent left mastectomy in 2005 Did well until October 2016, when she developed back pain/hip pain at that time she underwent MRI scan of lumbar spine on 11/16/2016 which showed extensive bone metastases with a large soft tissue mass anterior to L1-L2 measuring 5.[address] scan of abdomen pelvis on 12/14/2016 which confirmed presence of multiple bone metastases and a right retrocaval/paravertebral soft tissue mass and also with the mild thickening of sigmoid colon. Patient refused further workup but finally agreed for CT-guided biopsy of retrocaval mass, which was done on 02/21/2017, which showed estrogen receptor positive malignant cell which were also positive for GATA3 and negative for CK 7, CD20, CD45, CD38. Consistent with metastatic breast cancer. She was started on palliative hormone therapy with anastrozole on 03/13/2017 but she discontinued because of related anxiety and panic attacks. At that time she was referred to radiation oncology in [place], she saw Dr. Reyes on 05/15/2017, at that time she received palliative radiation therapy to site of painful bone metastases with good response and subsequently she was started on Faslodex from May 2017 through March 2018, had a good partial response to the treatment but then she discontinued treatment because of discomfort at the injection sites and opted for observation Underwent follow-up CT PET scan on 11/05/2018 which showed as per record, no areas of malignant range uptake. 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 CT PET scan done on 03/27/2019, when compared with CT PET scan from 11/05/2018 and 05/09/2018 showed no change in small retroperitoneal mass just posterior to the inferior vena cava that measures about 8 x 11 mm and there is a minimum activity in this area with maximum SUV of 2.5 which is not significant change. No other areas of abnormal activity or mass seen. Normal activity is seen in the solid organs. Sclerotic densities in the bone suspicion metastatic disease are unchanged. No increased activity is seen in the bones. cyst of posterior right kidney that measured 2.8 cm Status post left mastectomy Follow-up PET CT from October 2019 reported interval development of a left supraclavicular lymph node with abnormal metabolic activity compatible with active metastatic disease palm left sided internal mammary lymph node with increased metabolic activity, interval development of metabolic activity within multiple sclerotic lesions noted within the axial and proximal appendicular skeleton compatible with active disease. Her treatment was changed at that time to Arimidex and monthly Xgeva. She is tolerating it well. She is doing vitamin D and calcium supplements as well. Plan: 1. Proceed with Arimidex1 mg daily along with monthly Xgeva. She also continues calcium and vitamin D supplements. 2. Labs from March 28, 2020 were reviewed in detail and discussed with Mrs. Patiño and a copy was given to her. WBC 4.6, hemoglobin 10.6, platelets 297,000 potassium 5.0 creatinine 1.6 which is improved. Random glucose was 133 and LFTs are normal. 3. She will continue the Pepcid as it is working well for her heartburn. 4. She is currently on warfarin/Coumadin and it is regulated by Dr. Carpenter in [place], [place]. 5. I would like to do a DEXA scan on her if all possible and like to have this done at [facility] in [place] if that is available. She does need assessment of her osteoporosis status given that she has been on aromatase inhibitors for significant amount time in the past and is currently being treated with denosumab. 6. We will plan to see her back in 1 month with CBC, CMP vitamin D level. I have asked for a TSH to be added to the blood in the lab for fatigue and constipation complaints. 7. Mrs. Patiño was instructed to contact us in interim should questions or problems arise. Signed By: Chandni Justin, Morgan.N.P. <<Signature on File>>
[2020-04-02 05:44] LABS: CA 27.29 1987 U/mL (<38)
== END 2020-03-28 13:09 | disposition home or self-care (01) ==
PROVIDERS: PCP Family Medicine; Visit Provider Nurse Practitioner
DX: C50.912 Malignant neoplasm of unspecified site of left female breast (principal); C79.51 Secondary malignant neoplasm of bone; C79.89 Secondary malignant neoplasm of other specified sites; R12 Heartburn; R53.83 Other fatigue; K59.00 Constipation, unspecified; N28.1 Cyst of kidney, acquired; Z90.12 Acquired absence of left breast and nipple; Z79.811 Long term (current) use of aromatase inhibitors; Z79.01 Long term (current) use of anticoagulants; Z92.3 Personal history of irradiation; Z79.899 Other long term (current) drug therapy
CPT/HCPCS: 80053; 85025; 86300; 96372; 99214; J0897

== ENCOUNTER 2020-04-14 14:52 | Outpatient (CLI) | payer MEDICARE, SELFPAY ==
--- NOTE | 2020-04-14 15:06 | XR_ITS ---
WS: [id number] Bone mineral density performed on a Semetric, 04/14/2020 Clinical data: ASYMPTOMATIC MENOPAUSAL STATE Findings: The first 4 lumbar vertebral bodies demonstrated the bone mineral density of 1.524 g/cm2 for a young adult T score of 2.9. Sclerosis of the L1 vertebral body from metastatic disease increases the bone mineral density measurement. Measurement of the left hip reveals a bone mineral density of 1.078 g/cm2 with a young adult T score of 0.6. Measurement of the right hip reveals the bone mineral density of 1.021 g/cm2 for young adult T score of 0.1. XR/XR DEXA axial skeleton* [id number] Impression: 1. Normal bone mineral density of the lumbar spine and both hips. 2. The lumbar vertebral body bone mineral density is probably increased with th e presence of sclerosis in the L1 vertebral body.
== END 2020-04-14 14:53 | disposition home or self-care (01) ==
LOC: RADWPI 14:57
PROVIDERS: PCP Family Medicine; Visit Provider Nurse Practitioner
DX: Z78.0 Asymptomatic menopausal state (principal)
CPT/HCPCS: 77080

== ENCOUNTER 2020-04-27 11:52 | Outpatient (CLI) | payer MEDICARE, SELFPAY ==
[2020-04-27 12:18] LABS: Basophils % 0.7 %; Eosinophils # 0.1 10^3/uL (0.0-0.8); Eosinophils % 3.1 %; Hematocrit 30.8 % (37.0-47.0); Lymphocytes # 1.2 10^3/uL (0.8-4.8); Lymphocytes % 28.5 %; Mean Corpuscular HGB Conc 32.5 g/dL (30.0-36.0); Mean Corpuscular Hemoglobin 29.3 pg (28.0-34.0); Mean Corpuscular Volume 90.3 fL (81-99); Mean Platelet Volume 8.4 fL (7.4-10.4); Monocytes # 0.4 10^3/uL (0.2-0.9); Monocytes % 9.3 %; Neutrophils # 2.44 10^3/uL (1.8-7.7); Neutrophils % 57.9 %; Nucleated Red Blood Cells % 0 %; Platelet Count 379 10^3/cmm (130-400); Red Blood Count 3.41 10^6/uL (4.1-5.3); Red Cell Distribution Width 12.9 % (12.1-15.1); White Blood Count 4.2 10^3/uL (4.0-10.0)
[2020-04-27 12:37] LABS: Alanine Aminotransferase 18 U/L (0-33); Albumin Level 4.3 g/dL (3.5-5.2); Alkaline Phosphatase 146 IU/L (35-105); Anion Gap 15.7 (5-19); Aspartate Amino Transferase 28 U/L (0-32); Blood Urea Nitrogen 29 mg/dL (8-23); Carbon Dioxide 24 mmol/L (22-29); Chloride 95 mmol/L (98-107); Globulin 3.1 g/dL (1.3-4.6); Glucose 108 mg/dL (65-115); Osmolality Calculated 268 mOsm/kg (285-295); Potassium 4.7 mmol/L (3.5-5.1); Sodium 130 mmol/L (136-145); Total Bilirubin 0.2 mg/dL (0.15-1.2); Total Protein 7.4 g/dL (6.6-8.7)
[2020-04-27] MEDS: denosumab 120 mg SDV SUBCUT (14:16)
[2020-04-27 15:33] LABS: 25 Hydroxy Vitamin D 53 ng/mL (30-100)
--- NOTE | 2020-04-27 15:47 | ONC FU_ITS ---
Dr. Rees follow up note Patient: Joy Patiño Unit #: [id number]: 1940 Dicatated By: Fabiano Rees M.D.Date of Visit:Apr 27, 2020 Onc Med Follow-up/Prog Note History of Present Illness: Mrs. Patiño is an 80-year-old female, who was diagnosed with left breast cancer in 1998. She underwent left breast lumpectomy and she was given 3 courses of chemotherapy but could not tolerate the treatment. She did receive postlumpectomy radiation therapy. Mrs Patiño did not take any other treatment until in 2005 when she developed local recurrence and underwent left mastectomy. As per records, she developed back pain and hip pain in October 2016. She was evaluated by orthopedics and MRI scan of lumbar spine was done on 2016 which reported extensive bone metastases with a large soft tissue mass anterior to L1-L2 measuring 5.3 cm in greatest dimension. Her CEA was 30.1. CT scan of abdomen was done on 12/14/2016 which confirmed presence of multiple bone metastases and a right retrocaval/paravertebral soft tissue mass. And also noted was mild thickening of sigmoid colon, At that time patient refused further diagnostic efforts and requested only symptomatic care. She did agree for CT-guided biopsy of retrocaval mass, which was done on 02/21/2017. The pathology reported estrogen receptor positive malignant cells which were positive for LEESA-3, and negative for CK 7, CK 20, CD45, CD38. These findings were consistent with metastatic breast cancer. She began palliative hormone therapy with anastrozole on 03/13/2017, but she discontinued it because of related to anxiety/panic attacks. At that time she was referred to radiation oncology in [facility] and on 05/15/2017 she was evaluated by Dr. Reyes, and was given course of palliative radiation therapy to sites of painful bone metastases. Subsequently patient accepted treatment with Faslodex from May 2017 to March 2018 and had a good partial response to the treatment but then she discontinued treatment because of discomfort at the injection sites. She then opted for observation alone without any treatment. She underwent follow-up CT PET scan on 11/05/2018 which revealed no areas of malignant range uptake. HER-2/ale testing was not performed because of inadequate tissue obtained from retrocaval mass biopsy and her medical oncologist Dr. Nunez did not recommend rebiopsy for HER-2/ale status as patient prefer less aggressive therapy. 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 Complex bilateral renal lesions, indeterminate on noncontrast exam. Colonic diverticulosis without pericolonic inflammation. Patient denied any trauma to her lower back except as per patient she was working in the yard, that made her pain worse other than that she occasionally take narcotics, with good pain control but also with sedation, denies any lower extremity weakness or pain radiation to lower extremity, denies any urine or stool incontinence, denies any numbness in lower extremities. As per patient her pain was around 5-6 on a scale of 1-10. CT PET scan done on 03/27/[address] PET scan from 11/05/2018 and 05/09/2018showed no change in the small retroperitoneal mass posterior to the inferior vena cava with borderline activity with maximum SUV of 2.5 status post mastectomy on the left No change in sclerotic densities in the bone suspicious for metastatic disease which did not show increase activity. Follow-up CT PET scan done on 11/03/2019 showed, interval development of 2.9 cm, left supraclavicular lymph node with abnormal metabolic activity, SUV 8.9. There are numerous sclerotic foci within the bones with abnormal metabolic activity including left iliac bone sclerotic lesion with a maximal SUV 4.9. There or metabolically active lesions within the axilla and proximal appendicular skeleton which have worsened in the interval. Small retrocaval lymph node has SUV of 2.8 As a new left internal mammary lymph node with increase in metabolic activity. Mrs Patiño was started on Arimidex 1 mg by mouth daily along with vitamin D/calcium on 11/16/2019. She also began monthly Xgeva at that time. She has been tolerating Arimidex and vitamin D/calcium and monthly Xgeva well. Came for follow-up, denies any specific complaints except persistent generalized weakness and fatigue, no shortness of breath or palpitation, no chest pain, no focal weakness, no night sweats, no melena or hematochezia, no hemoptysis or hematemesis, no hematuria, no jaundice, no new bony pains, tolerating Arimidex/vitamin D/calcium well along with monthly Xgeva Medications: Aspirin Low Dose 1 Tablet (of 81 mg) Oral daily, Calcium Citrate 1 Capsule Oral daily, Coumadin 1 Tablet (of 1 mg) Oral daily, Docusate Calcium 1 Capsule (of 240 mg) Oral daily, Famotidine 1 Tablet (of 40 mg) Oral daily, Fish Oil 1 Capsule Oral daily, Lexapro 0.5 Tablet (of 20 mg) Oral daily, Lisinopril-Hydrochlorothiazide 1 Tablet (of 20-25 mg) Oral daily, LORazepam 1 Tablet (of 0.5 mg) Tablet Oral q 4 hours PRN, Mobic 1 Tablet (of 15 mg) Oral daily, Multiple Vitamins-Minerals 1 Tablet Oral daily, PriLOSEC 1 Capsule (of 20 mg) Capsule Delayed Release Oral daily Allergies: No Known Allergies. Review of Systems: Review of Systems is not available for this patient. Vital Signs: Performed on Apr 27, 2020 13:44 Height - 64.00 in Weight - 158.4 lbs (LOW) BSA - 1.77 sq.m BMI - 27.19 Temperature - 98.1 F (LOW) Pulse - 86 /min Respiration - 18 /min BP - 99/50 mm(hg) O2 Sat - 97 % Pain - 0 Performance Status: 1 - No physically strenuous activity, but ambulatory and able to carry out light or sedentary work (e.g. office work, light house work). (ECOG) Physical Examination: Respiratory - Lungs are clear Cardiovascular - Regular rate and rhythm of heart Gastrointestinal -Soft, bowel sounds present Extremities - No visible edemaLab/Imaging: Test performed on Mar 28, 2020 13:21 Sodium 129 mmol/L Potassium 5.0 mmol/L Chloride 93 mmol/L CO2 25 mmol/L Anion Gap 16.0 BUN 22 mg/dL Creatinine 1.6 mg/dL Cr Clearance (Est) 31.4900 mL/min Glucose 133 mg/dL Calcium 9.4 mg/dL Protein, Total 7.4 g/dL Albumin 4.3 g/dL Globulin 3.1 g/dL Bilirubin, Total 0.3 mg/dL ALT (SGPT) 16 U/L AST (SGOT) 26 U/L Alkaline Phosphatase 107 IU/L WBC 4.6 10 3/uL RBC 3.60 10 6/uL HGB 10.6 g/dL HCT 32.3 % MCV 89.7 fL MCH 29.4 pg MCHC 32.8 g/dL RDW 12.9 % Platelet Count 297 10 3/cmm MPV 8.5 fL Neutrophils 2.7 10 3/uL Lymphocytes 1.3 10 3/uL Monocytes 0.4 10 3/uL Eosinophils 0.2 10 3/uL Basophils 0.0 10 3/uL Neutrophil % 58.2 % Lymphocyte % 26.9 % Monocyte % 9.5 % Eosinophil % 4.3 % Basophils % 0.9 % NRBC % 0 % Impression: Progressive metastatic breast cancer while being observed at patient request , now confirmed with f/u CT PET scan done on 11/03/2019, started on Arimidex 1 mg by mouth daily along with vitamin D and calcium supplement and monthly Xgeva on 11/16/2019 History of left breast cancer status post lumpectomy in 1998 followed by adjuvant chemotherapy patient took 3/4 recommended courses and quit AGAINST MEDICAL ADVICE because of intolerance. Followed by postlumpectomy radiation therapy and no further treatment Local recurrence in left breast for which she underwent left mastectomy in 2005 Did well until October 2016, when she developed back pain/hip pain at that time she underwent MRI scan of lumbar spine on 11/16/2016 which showed extensive bone metastases with a large soft tissue mass anterior to L1-L2 measuring 5.[address] scan of abdomen pelvis on 12/14/2016 which confirmed presence of multiple bone metastases and a right retrocaval/paravertebral soft tissue mass and also with the mild thickening of sigmoid colon. Patient refused further workup but finally agreed for CT-guided biopsy of retrocaval mass, which was done on 02/21/2017, which showed estrogen receptor positive malignant cell which were also positive for GATA3 and negative for CK 7, CD20, CD45, CD38. Consistent with metastatic breast cancer. She was started on palliative hormone therapy with anastrozole on 03/13/2017 but she discontinued because of related anxiety and panic attacks. At that time she was referred to radiation oncology in [place], she saw Dr. Reyes on 05/15/2017, at that time she received palliative radiation therapy to site of painful bone metastases with good response and subsequently she was started on Faslodex from May 2017 through March 2018, had a good partial response to the treatment but then she discontinued treatment because of discomfort at the injection sites and opted for observation Underwent follow-up CT PET scan on 11/05/2018 which showed as per record, no areas of malignant range uptake. 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 CT PET scan done on 03/27/2019, when compared with CT PET scan from 11/05/2018 and 05/09/2018 showed no change in small retroperitoneal mass just posterior to the inferior vena cava that measures about 8 x 11 mm and there is a minimum activity in this area with maximum SUV of 2.5 which is not significant change. No other areas of abnormal activity or mass seen. Normal activity is seen in the solid organs. Next Sclerotic densities in the bone suspicion metastatic disease are unchanged. No increased activity is seen in the bones. cyst of posterior right kidney that measured 2.8 cm Status post left mastectomy. Plan: Discussed with patient regarding her labs white blood count 4.2 hemoglobin 10 hematocrit 30.8 platelets 379,000 CMP within normal limit except creatinine 1.4 compared to 1.8 on December 23, 2019 Clinically, patient is doing well, tolerating Arimidex with vitamin D/calcium well along with monthly Xgeva. We will proceed with next dose of Xgeva today and then she will return to clinic in 1 month with CBC CMP As for generalized weakness and fatigue is concerned could be multifactorial including progressive anemia or due to Arimidex or thyroid dysfunction. We will check her anemia work-up as well as TSH level. And also consider follow-up CT PET scan to assess disease status and response to the treatment if it shows good response then we may consider changing Xgeva to every 2 to 3 months., As per the mild renal insufficiency is concerned, it is improving now, patient was encouraged to maintain good hydration. She return to clinic in 1 month with CBC CMP Signed By: Fabiano Rees M.D. <<Signature on File>>
[2020-04-27 21:23] LABS: Ferritin 188 ng/mL (15-150); Iron 47 ug/dL (37-145); Percent Saturation 18.2 % (20-50); Thyroid Stimulating Hormone 1.04 uIU/mL (0.27-4.20); Total Iron Binding Capacity 257 mcg/dl; Unsaturated Iron Binding 210 ug/dL (112-347); Vitamin B12 782 pg/mL (232-1245)
== END 2020-04-27 11:53 | disposition home or self-care (01) ==
LOC: ONCMED 11:57
PROVIDERS: PCP Family Medicine; Visit Provider Internal Medicine Hematology & Oncology
DX: C79.51 Secondary malignant neoplasm of bone (principal); Z85.3 Personal history of malignant neoplasm of breast; R53.1 Weakness; N28.1 Cyst of kidney, acquired; N28.9 Disorder of kidney and ureter, unspecified; M79.10 Myalgia, unspecified site; Z79.811 Long term (current) use of aromatase inhibitors; Z90.12 Acquired absence of left breast and nipple; Z79.899 Other long term (current) drug therapy; Z92.3 Personal history of irradiation; Z92.21 Personal history of antineoplastic chemotherapy
CPT/HCPCS: 80053; 82306; 82607; 82728; 83540; 83550; 84443; 85025; 96372; J0897

== ENCOUNTER 2020-06-01 09:32 | Outpatient (CLI) | payer MEDICARE, SELFPAY ==
[2020-06-01 10:02] LABS: Basophils % 0.6 %; Eosinophils # 0.1 10^3/uL (0.0-0.8); Eosinophils % 1.4 %; Hematocrit 30.2 % (37.0-47.0); Hemoglobin 9.8 g/dL (11.5-15.3); Lymphocytes # 0.7 10^3/uL (0.8-4.8); Lymphocytes % 14.3 %; Mean Corpuscular HGB Conc 32.5 g/dL (30.0-36.0); Mean Corpuscular Hemoglobin 28.5 pg (28.0-34.0); Mean Corpuscular Volume 87.8 fL (81-99); Mean Platelet Volume 8.5 fL (7.4-10.4); Monocytes # 0.3 10^3/uL (0.2-0.9); Monocytes % 6.7 %; Neutrophils # 3.78 10^3/uL (1.8-7.7); Neutrophils % 76.4 %; Nucleated Red Blood Cells % 0 %; Platelet Count 401 10^3/cmm (130-400); Red Blood Count 3.44 10^6/uL (4.1-5.3); Red Cell Distribution Width 13.5 % (12.1-15.1)
[2020-06-01 10:33] LABS: Alanine Aminotransferase 18 U/L (0-33); Albumin Level 3.8 g/dL (3.5-5.2); Alkaline Phosphatase 216 IU/L (35-105); Anion Gap 17.8 (5-19); Aspartate Amino Transferase 35 U/L (0-32); Blood Urea Nitrogen 29 mg/dL (8-23); Calcium 9.2 mg/dL (8.5-10.5); Carbon Dioxide 22 mmol/L (22-29); Chloride 91 mmol/L (98-107); Globulin 3.7 g/dL (1.3-4.6); Glucose 141 mg/dL (65-115); Osmolality Calculated 261 mOsm/kg (285-295); Potassium 4.8 mmol/L (3.5-5.1); Sodium 126 mmol/L (136-145); Thyroid Stimulating Hormone 1.54 uIU/mL (0.27-4.20); Total Bilirubin 0.4 mg/dL (0.15-1.2); Total Protein 7.5 g/dL (6.6-8.7)
[2020-06-01 11:16] LABS: Ferritin 312 ng/mL (15-150); Iron 36 ug/dL (37-145); Percent Saturation 17.3 % (20-50); Total Iron Binding Capacity 207 mcg/dl; Unsaturated Iron Binding 171 ug/dL (112-347)
[2020-06-01 13:16] LABS: Vitamin B12 1311 pg/mL (232-1245)
--- NOTE | 2020-06-03 09:55 | ONC FU_ITS ---
Dr. Rees follow up note Patient: Joy Patiño Unit #: [id number]: 1940 Dicatated By: Fabiano Rees M.D.Date of Visit:Jun 01, 2020 Onc Med Follow-up/Prog Note History of Present Illness: Mrs. Patiño is an 80-year-old female, who was diagnosed with left breast cancer in 1998. She underwent left breast lumpectomy and she was given 3 courses of chemotherapy but could not tolerate the treatment. She did receive postlumpectomy radiation therapy. Mrs Patiño did not take any other treatment until in 2005 when she developed local recurrence and underwent left mastectomy. As per records, she developed back pain and hip pain in October 2016. She was evaluated by orthopedics and MRI scan of lumbar spine was done on 2016 which reported extensive bone metastases with a large soft tissue mass anterior to L1-L2 measuring 5.3 cm in greatest dimension. Her CEA was 30.1. CT scan of abdomen was done on 12/14/2016 which confirmed presence of multiple bone metastases and a right retrocaval/paravertebral soft tissue mass. And also noted was mild thickening of sigmoid colon, At that time patient refused further diagnostic efforts and requested only symptomatic care. She did agree for CT-guided biopsy of retrocaval mass, which was done on 02/21/2017. The pathology reported estrogen receptor positive malignant cells which were positive for LEESA-3, and negative for CK 7, CK 20, CD45, CD38. These findings were consistent with metastatic breast cancer. She began palliative hormone therapy with anastrozole on 03/13/2017, but she discontinued it because of related to anxiety/panic attacks. At that time she was referred to radiation oncology in [facility] and on 05/15/2017 she was evaluated by Dr. Reyes, and was given course of palliative radiation therapy to sites of painful bone metastases. Subsequently patient accepted treatment with Faslodex from May 2017 to March 2018 and had a good partial response to the treatment but then she discontinued treatment because of discomfort at the injection sites. She then opted for observation alone without any treatment. She underwent follow-up CT PET scan on 11/05/2018 which revealed no areas of malignant range uptake. HER-2/ale testing was not performed because of inadequate tissue obtained from retrocaval mass biopsy and her medical oncologist Dr. Nunez did not recommend rebiopsy for HER-2/ale status as patient prefer less aggressive therapy. 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 Complex bilateral renal lesions, indeterminate on noncontrast exam. Colonic diverticulosis without pericolonic inflammation. Patient denied any trauma to her lower back except as per patient she was working in the yard, that made her pain worse other than that she occasionally take narcotics, with good pain control but also with sedation, denies any lower extremity weakness or pain radiation to lower extremity, denies any urine or stool incontinence, denies any numbness in lower extremities. As per patient her pain was around 5-6 on a scale of 1-10. CT PET scan done on 03/27/[address] PET scan from 11/05/2018 and 05/09/2018showed no change in the small retroperitoneal mass posterior to the inferior vena cava with borderline activity with maximum SUV of 2.5 status post mastectomy on the left No change in sclerotic densities in the bone suspicious for metastatic disease which did not show increase activity. Follow-up CT PET scan done on 11/03/2019 showed, interval development of 2.9 cm, left supraclavicular lymph node with abnormal metabolic activity, SUV 8.9. There are numerous sclerotic foci within the bones with abnormal metabolic activity including left iliac bone sclerotic lesion with a maximal SUV 4.9. There or metabolically active lesions within the axilla and proximal appendicular skeleton which have worsened in the interval. Small retrocaval lymph node has SUV of 2.8 As a new left internal mammary lymph node with increase in metabolic activity. Mrs Patiño was started on Arimidex 1 mg by mouth daily along with vitamin D/calcium on 11/16/2019. She also began monthly Xgeva at that time. She has been tolerating Arimidex and vitamin D/calcium and monthly Xgeva well. Follow-up PET scan done on May 25, 2020 showed interval development of innumerable liver lesions with increased metabolic activity compatible with progressive metastatic disease. New area of soft tissue pleural thickening in the posterior right chest with increased metabolic activity. Apparent interval worsening of osseous metastatic disease. Persistent abnormal metabolic active lymph node in left supraclavicular lymph node and left internal mammary region. Came for follow-up, denies any specific complaint except mild/moderate discomfort in the right posterior chest but under control with [id number] pain medication. Otherwise denies any fever chills denies any nausea or vomiting denies diarrhea or constipation denies any new bony pains denies any weight loss, appetite is good, tolerating Arimidex well otherwise along with monthly Xgeva, As per patient it is getting hard to travel to the cancer center from her hometown in [place] Medications: Aspirin Low Dose 1 Tablet (of 81 mg) Oral daily, Calcium Citrate 1 Capsule Oral daily, Coumadin 1 Tablet (of 1 mg) Oral daily, Docusate Calcium 1 Capsule (of 240 mg) Oral daily, Famotidine 1 Tablet (of 40 mg) Oral daily, Fish Oil 1 Capsule Oral daily, Lexapro 0.5 Tablet (of 20 mg) Oral daily, Lisinopril-Hydrochlorothiazide 1 Tablet (of 20-25 mg) Oral daily, LORazepam 1 Tablet (of 0.5 mg) Tablet Oral q 4 hours PRN, Mobic 1 Tablet (of 15 mg) Oral daily, Multiple Vitamins-Minerals 1 Tablet Oral daily, PriLOSEC 1 Capsule (of 20 mg) Capsule Delayed Release Oral daily Allergies: No Known Allergies. Review of Systems: Review of Systems is not available for this patient. Vital Signs: Performed on Jun 01, 2020 11:23 Height - 64.00 in Weight - 153.8 lbs (LOW) BSA - 1.75 sq.m BMI - 26.40 Temperature - 97.1 F (LOW) Pulse - 85 /min Respiration - 24 /min BP - 109/47 mm(hg) O2 Sat - 100 % Pain - 3 Performance Status: 2 - Ambulatory/capable of all self-care, unable to perform any work activities. Up and about more than 50% of waking hours. (ECOG) Physical Examination: Respiratory - Lungs are clear, Cardiovascular - Regular rate and rhythm of heart, Gastrointestinal - Soft, bowel sounds present, Extremities - No visible edema. Lab/Imaging: Test performed on Apr 27, 2020 12:05 Sodium 130 mmol/L Vitamin D (25-Hydroxy), Total 53 ng/mL Potassium 4.7 mmol/L Chloride 95 mmol/L CO2 24 mmol/L Anion Gap 15.7 BUN 29 mg/dL Creatinine 1.4 mg/dL Cr Clearance (Est) 35.14 mL/min Glucose 108 mg/dL Calcium 10.0 mg/dL Protein, Total 7.4 g/dL Albumin 4.3 g/dL Globulin 3.1 g/dL Bilirubin, Total 0.2 mg/dL ALT (SGPT) 18 U/L AST (SGOT) 28 U/L Alkaline Phosphatase 146 IU/L Test performed on Apr 27, 2020 12:01 Ferritin 188 ng/mL Iron 47 mcg/dL Vitamin B12 782 pg/mL Iron Binding Capacity (TIBC) 257 mcg/dl % Iron Saturation 18.2 % UIBC 210 mcg/dL Test performed on Mar 28, 2020 13:21 WBC 4.6 10 3/uL RBC 3.60 10 6/uL HGB 10.6 g/dL HCT 32.3 % MCV 89.7 fL MCH 29.4 pg MCHC 32.8 g/dL RDW 12.9 % Platelet Count 297 10 3/cmm MPV 8.5 fL Neutrophils 2.7 10 3/uL Lymphocytes 1.3 10 3/uL Monocytes 0.4 10 3/uL Eosinophils 0.2 10 3/uL Basophils 0.0 10 3/uL Neutrophil % 58.2 % Lymphocyte % 26.9 % Monocyte % 9.5 % Eosinophil % 4.3 % Basophils % 0.9 % NRBC % 0 % Impression: Progressive metastatic breast cancer while being observed at patient request , now confirmed with f/u CT PET scan done on 11/03/2019, started on Arimidex 1 mg by mouth daily along with vitamin D and calcium supplement and monthly Xgeva on 11/16/2019 History of left breast cancer status post lumpectomy in 1998 followed by adjuvant chemotherapy patient took 3/4 recommended courses and quit AGAINST MEDICAL ADVICE because of intolerance. Followed by postlumpectomy radiation therapy and no further treatment Local recurrence in left breast for which she underwent left mastectomy in 2005 Did well until October 2016, when she developed back pain/hip pain at that time she underwent MRI scan of lumbar spine on 11/16/2016 which showed extensive bone metastases with a large soft tissue mass anterior to L1-L2 measuring 5.[address] scan of abdomen pelvis on 12/14/2016 which confirmed presence of multiple bone metastases and a right retrocaval/paravertebral soft tissue mass and also with the mild thickening of sigmoid colon. Patient refused further workup but finally agreed for CT-guided biopsy of retrocaval mass, which was done on 02/21/2017, which showed estrogen receptor positive malignant cell which were also positive for GATA3 and negative for CK 7, CD20, CD45, CD38. Consistent with metastatic breast cancer. She was started on palliative hormone therapy with anastrozole on 03/13/2017 but she discontinued because of related anxiety and panic attacks. At that time she was referred to radiation oncology in [place], she saw Dr. Reyes on 05/15/2017, at that time she received palliative radiation therapy to site of painful bone metastases with good response and subsequently she was started on Faslodex from May 2017 through March 2018, had a good partial response to the treatment but then she discontinued treatment because of discomfort at the injection sites and opted for observation Underwent follow-up CT PET scan on 11/05/2018 which showed as per record, no areas of malignant range uptake. 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 CT PET scan done on 03/27/2019, when compared with CT PET scan from 11/05/2018 and 05/09/2018 showed no change in small retroperitoneal mass just posterior to the inferior vena cava that measures about 8 x 11 mm and there is a minimum activity in this area with maximum SUV of 2.5 which is not significant change. No other areas of abnormal activity or mass seen. Normal activity is seen in the solid organs. Next Sclerotic densities in the bone suspicion metastatic disease are unchanged. No increased activity is seen in the bones. cyst of posterior right kidney that measured 2.8 cm Status post left mastectomy. Plan: Discussed with patient regarding her labs white blood count 5 hemoglobin 9.8 hematocrit 30.2 platelets 401,000 CMP within normal limit except glucose 141 sodium 126 and creatinine 2.1 compared to 1.4 on April 27, 2020 and iron studies showed ferritin 312 iron 36 and, and TSH 1.54 and her tumor marker CA-27-29 checked on March 28, 2020 was 1987 and now follow-up CT PET scan done on May 25, 2020 shows disease progression Clinically, patient is doing reasonably well tolerating Arimidex along with vitamin D/calcium and monthly Xgeva well but with expected side effects. Her follow-up CT PET scan shows evidence of disease progression and discussed with patient regarding changing her treatment to Ibrance/fulvestrant or palliative chemotherapy for cytoreduction, as she has extensive liver mets followed by hormonal therapy. Patient said it is getting hard for her to travel and moreover she is not interested in any more treatment, case was discussed with her son Solomon on the phone and he concurred with his mother and and other option was hospice care, both agreed for hospice care. So At patient and her son's request,we will refer her to hospice care,. Signed By: Fabiano Rees M.D. <<Signature on File>>
== END 2020-06-01 09:33 | disposition home or self-care (01) ==
LOC: ONCMED 09:34
PROVIDERS: PCP Family Medicine; Visit Provider Internal Medicine Hematology & Oncology
DX: C50.912 Malignant neoplasm of unspecified site of left female breast (principal); C79.51 Secondary malignant neoplasm of bone; C78.6 Secondary malignant neoplasm of retroperitoneum and peritoneum; C78.7 Secondary malignant neoplasm of liver and intrahepatic bile duct; Z90.12 Acquired absence of left breast and nipple; N28.1 Cyst of kidney, acquired; Z79.811 Long term (current) use of aromatase inhibitors; Z79.899 Other long term (current) drug therapy; Z92.3 Personal history of irradiation; Z78.0 Asymptomatic menopausal state
CPT/HCPCS: 80053; 82607; 82728; 83540; 83550; 84443; 85025; 99214